=== PATIENT | male | born 2000 | race Caucasian/White ===

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

== ENCOUNTER 2022-08-06 06:09 | Emergency (ER) | payer MEDICAID ==
[2022-08-06 06:51] VITALS: O2SAT 99
--- NOTE | 2022-08-06 07:29 | ERPHSYRPT ---
- History of Present Illness Time Seen by Provider: 08/06/22 07:15 Source: patient, family Exam Limitations: no limitations Patient Subjective Stated Complaint: pt states I work in the [employer] mine and have been bent over and lifting a lot. 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 The right side was worse than the left. He did not fall or suffer any acute traumatic injury. He takes no medication chronically and and he has no known drug allergies. Patient's significant other drove him into the hospital today. Patient has no urinary symptoms. Timing/Duration: today Method of Injury: twisted, turning, other (No injury) Quality: sharp Back Pain Location: lumbar spine Back Pain Radiation: buttocks, upper legs Severity of Pain-Max: moderate ([place]) Severity of Pain-Current: moderate Modifying Factors: Improves With: movement Associated Symptoms: denies symptoms, lower back pain, muscle spasms, No urinary incontinence, No loss of bowel control Previous symptoms: no prior history Allergies/Adverse Reactions: No Known Drug Allergies Allergy (Verified 08/06/22 06:43) Hx Tetanus, Diphtheria Vaccination/Date Given: Yes Hx Influenza Vaccination/Date Given: No Hx Pneumococcal Vaccination/Date Given: No Travel Risk - International Travel Have you traveled outside of the country in past 3 weeks: No - Coronavirus Screening Are you exhibiting any of the following symptoms?: No Close contact with a COVID-19 positive Pt in past 14-21 Days: No - Vaccine Status Have you recieved a Covid-19 vaccination: No - Review of Systems Constitutional: No Symptoms Eyes: No Symptoms Ears, Nose, & Throat: No Symptoms Respiratory: No Symptoms Cardiac: No Symptoms Abdominal/Gastrointestinal: No Symptoms Genitourinary Symptoms: No Symptoms Musculoskeletal: Back Pain Skin: No Symptoms Neurological: No Symptoms Psychological: No Symptoms Endocrine: No Symptoms Hematologic/Lymphatic: No Symptoms Immunological/Allergic: No Symptoms All Other Systems: Reviewed and Negative - Past Medical History Pertinent Past Medical History: No - Past Surgical History Past Surgical History: No - Social History Smoking Status: Light tobacco smoker Exposure to second hand smoke: No Drug Use: none Patient Lives Alone: No - Nursing Vital Signs Nursing Vital Signs: Initial Vital Signs Temperature 98.6 F 08/06/22 06:43 Pulse Rate 77 08/06/22 06:43 Respiratory Rate 14 08/06/22 06:43 Blood Pressure 112/64 08/06/22 06:43 O2 Sat by Pulse Oximetry 99 08/06/22 06:43 Pain Scale Pain Intensity [Lower Back] 7 Pain Intensity 7 - Physical Exam General Appearance: no apparent distress, alert, anxiety Eye Exam: PERRL/EOMI, eyes nml inspection Ears, Nose, Throat Exam: normal ENT inspection, moist mucous membranes Neck Exam: normal inspection, non-tender, supple, full range of motion Respiratory Exam: airway intact, No chest tenderness, No respiratory distress Gastrointestinal Exam: No tenderness Rectal Exam: not done Back Exam: normal inspection, normal range of motion, muscle spasm, No CVA tenderness, No vertebral tenderness Extremity Exam: normal inspection, normal range of motion, pelvis stable Neurologic Exam: alert, oriented x 3, cooperative, 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 The level of complexity and work-up is based on the review of the patient's past medical history, medication list review, drug allergy list review and history of present illness as well as the physical findings on examination. Patient does not require any blood work or radiographic examination. The patient will receive Percocet 5/325 orally, 125 mg intramuscular Solu-Medrol and 60 mg intramuscular Norflex. Patient will be discharged home with a prescription scription of prednisone and Norflex oral to be electronically sent to his pharmacy. 08/06/22 07:29 Counseled pt/family regarding: diagnosis, need for follow-up Medical Desision Making - Discussion of managment Agreed on:: Treatment plan, need for follow-up - Diagnostic Testing Diagnostic test were ordered, analyzed, and reviewed by me: No - Risk of complications The pt has a mod risk of morbidity or mortality based on: Need for prescription drug management - Departure Departure Disposition: Home Clinical Impression: Back pain, Sciatica Condition: Stable Critical Care Time: No Referrals: DOCTOR,NO FAMILY [Primary Care Provider] - Follow up/PCP as directed Additional Instructions: Take your medication as prescribed. Follow-up with your primary care provider for further evaluation management. Forms: Work/School Release Form Prescriptions: Prednisone 10 mg [Deltasone 10 mg] 10 mg PO TID #12 tablet Orphenadrine Citrate 100 mg [Norflex 100 MG Tablet] 100 mg PO BID #10 tab
[2022-08-06] MEDS ORDERED: Norflex 60 MG/2 ML IM ONE (07:32)
[2022-08-06] MEDS ORDERED: solu-MEDROL 125 MG, Sterile H2O 10 ml 2 ML IM ONE ×2 (07:32)
[2022-08-06] MEDS ORDERED: PERCOCET TABLET 5/325MG PO STA (07:33)
[2022-08-06] MEDS ORDERED: PERCOCET TABLET 5/325MG ONE (07:44)
[2022-08-06] MEDS ORDERED: Sterile H2O 10 ml IJ ONE (07:44)
[2022-08-06] MEDS ORDERED: Norflex 60 MG/2 ML ONE (07:45)
[2022-08-06] MEDS ORDERED: solu-MEDROL ONE (07:45)
[2022-08-06 08:02] VITALS: BP 103/62; PULSE 71
== END 2022-08-06 08:14 | disposition home or self-care (01) ==
LOC: ED 06:09
DX: M54.42 Lumbago with sciatica, left side (principal); M54.41 Lumbago with sciatica, right side; Z28.310 Unvaccinated for COVID-19; Z72.0 Tobacco use; Z79.52 Long term (current) use of systemic steroids
CPT/HCPCS: 96372; 99283; J2360; J2930; A9270-GY